=== PATIENT | female | born 2000 | race Caucasian/White ===

== ENCOUNTER 2024-06-22 10:40 | Emergency (ER) | payer OTHER, SELFPAY ==
--- NOTE | 2024-06-22 10:30 | RT.EKG_ITS ---
APPROVED REPORT Exam: Resting ECG Reason for Exam: chest pain Patient Location: E HR:77 bpm ECG Measurements Heart Rate 77 AXIS ND 134 P 67 QRSd 76 QRS 74 QT 342 T 52 QTc 387 Conclusion Sinus rhythm, rate 77 No interval abnormalities, No STEMI
[2024-06-22 10:51] VITALS: BP 122/88; PULSE 74; RESP 12; TEMP 36.3; O2SAT 99
--- NOTE | 2024-06-22 11:11 | ED.GENADUL_ITS ---
Discharge Plan Disposition Patient Disposition: Home Condition: Stable Discharge Details Clinical Impression: Chest pain of uncertain etiology Primary Care Provider: Unknown,Unknown ED Provider: Jean Paul Tate Home Meds and New Rx's Prescriptions: No Action methylphenidate HCl [Concerta] 36 mg tablet extended release 24hr 36 mg PO DAILY Discharge Instructions Instructions: Chest Pain, Adult ED Additional Instructions: You were seen in the emergency department for your chest pressure while walking your dog yesterday with some dizzy spells that resolved with rest, your cardiac workup is completely negative, we ruled out a blood clot in your lungs by the laboratory study called D-dimer, your EKG shows no acute abnormalities and your chest x-ray shows no acute abnormalities, there may be an element of anxiety involved and you are at low risk for any early cardiac pathology, therefore it is reasonable to follow-up with your regular primary care provider for possible need for an echocardiogram and possible stress test, please return to the emergency department for any return of significant exertional chest pain with shortness of breath sweating, dizziness, near fainting. Referrals: [facility] [Provider Group] Discharge Data Discharge Date/Time-TO BE ENTERED AT DEPARTURE: 06/22/24 14:32 HPI General Date/Time Provider Initiated Documentation: 06/22/24 10:54 . HPI Narrative: 24 year-old female presents to ED today by POV/ambulating with a chief complaint of chest tightness/discomfort and heaviness with onset last night while walking her dog, reoslving quickly with a few moments rest. Quality described as chest heaviness, no radiation to diaphoresis, dizziness, near syncope, nausea or vomiting, recent cough or fever, active chest pain. Severity is described as 3/10. Palliating factors include rest. Provoking factors include walking her dog, also questions whether getting to flu shots this year 5 months apart could be contributing. 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 Patient not anticoagulated. Related Data Home Medications ?Medication ?Instructions ?Recorded ?Confirmed methylphenidate HCl 36 mg 36 mg PO DAILY 06/22/24 06/22/24 tablet,extended release 24 hr (Concerta) Allergies Allergy/AdvReac Type Severity Reaction Status Date / Time No Known Allergies Allergy Unverified 06/22/24 10:53 General Stated Complaint: Chest Pain LETICIA: 3 Review of Systems All systems reviewed & are unremarkable except as noted in HPI and below Exam Narrative Exam Narrative: GENERAL APPEARANCE: Well-nourished, non-toxic, awake and alert, atraumatic, no acute distress. SKIN: Warm, pink, dry, intact, without rashes/lesions/ulcerations. HEAD: Normocephalic, atraumatic, normal hair distribution for gender/age. EYES: Normal conjunctiva, no exudates on lids/lashes. ENT: Nares patent, no circumoral cyanosis, no facial swelling NECK: Supple, trachea midline, painless cervical ROM. LUNGS/CHEST: Lungs CTA bilaterally- no rhonchi/rales/wheezes diffusely, non- labored respirations, normal A/P diameter, symmetrical expansion, no chest wall deformity HEART (CV/PV): Regular rate and rhythm without murmur, no peripheral edema, no JVD. ABDOMEN: Soft, non-distended, no guarding, no tenderness. MSK: Normal ROM, no swelling/deformity to bilateral UEs or LEs, moving all extremities without weakness, no cyanosis, spine midline without tenderness, normal curvature. NEURO: Mental Status AAOx4 - alert to person, place, time, events No facial droop, no forehead involvement. Motor: No focal weakness - strength 5/5 in bilateral UEs and LEs, proximal and distal, symmetric. Sensory: sensation intact to light touch globally. Gait normal: patient ambulated without ataxia into ED room. PSYCH: euthymic, cooperative, pleasant, appropriate speech Course Vital Signs Vital signs: Vital Signs Temperature 36.3 C L 06/22/24 10:51 Pulse 74 06/22/24 10:51 Respiratory Rate 12 06/22/24 10:51 Blood Pressure 122/88 06/22/24 10:51 Pulse Oximetry 99 06/22/24 10:51 Temperature 36.3 C L 06/22/24 10:51 Temperature Source Oral 06/22/24 10:51 Pulse 74 06/22/24 10:51 Respiratory Rate 12 06/22/24 10:51 Blood Pressure 122/88 06/22/24 10:51 Blood Pressure Position Sitting 06/22/24 10:51 Pulse Oximetry 99 06/22/24 10:51 Oxygen Delivery Method Room Air 06/22/24 10:51 Oxygen Flow Rate 0 06/22/24 10:51 Pain Level 5 06/22/24 10:51 Medical Decision Making This dictation utilizes [id number] dictation software and may contain unedited grammatical errors. 24 year-old female presents to ED today by POV/ambulating with a chief complaint of chest tightness/discomfort and heaviness with onset last night while walking her dog, reoslving quickly with a few moments rest. Quality described as chest heaviness, no radiation to diaphoresis, dizziness, near syncope, nausea or vomiting, recent cough or fever, active chest pain. Severity is described as 3/10. Palliating factors include rest. Provoking factors include walking her dog, also questions whether getting to flu shots this year 5 months apart could be contributing. 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 Patients' medical history: Negative, otherwise healthy. Family and social history: Denies family history of early cardiac disease. Pertinent exam findings / vital signs include benign physical exam. Differential / pathologies of concern include anxiety, PE, ACS. Diagnostic studies of: -CBC, CMP, magnesium, troponin, lipase, D-dimer, TSH, EKG, CXR. -CBC benign -CMP without abnormality -Mg++ wnl -Trop negative with reliable onset -Lipase WNL -D-dimer neg -EKG NSR -CXR negative Interventions of: -none, LOW Risk HEART Score- outpatient f/u. ED Course/Assessment/Plan: 24-year-old otherwise healthy female with no family history of early cardiac disease presents with exertional chest heaviness and shortness of breath while walking her dog yesterday that resolved with rest after a few moments. 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 Findings not consistent with ACS, PE, pneumonia, arrhythmia. Disposition of Chest Pain of Uncertain Etiology. Patient verbalized understanding of the plan and return to ED criteria and engaged in shared decision making. Medical Records Medical records reviewed: Yes I reviewed the patient's medical records. Imaging Data Radiologic Study: Attestation: I personally reviewed and interpreted this imaging study as follows: Imaging: X-Ray Radiologist's impression: EXAM: XR CHEST 2V PA LATERAL CLINICAL HISTORY: chest pain TECHNIQUE: 2D digital imaging was performed. Two views. COMPARISON: No exams were available for comparison FINDINGS: HEART: Normal size. Aorta: Not dilated. PULMONARY VASCULATURE: Normal. MEDIASTINUM: Unremarkable. LUNGS: Clear. PLEURAL SPACE: No pleural effusion or pneumothorax. BONE:Unremarkable for age. SOFT TISSUES: Unremarkable. IMPRESSION: No acute abnormality. Lab Data Lab results reviewed: Yes I reviewed the patient's lab results. Labs: Laboratory Tests Range/Units 06/22/24 12:20 WBC (4.4-10.8) 10^3/uL 6.73 RBC (3.93-5.22) 10^6/uL 5.05 Hgb (11.2-15.7) g/dL 14.3 Hct (36.0-46.0) % 42.2 MCV (80-95) fL 84 MCH (27.0-33.0) pg 28.3 MCHC (32.0-36.0) % 33.9 RDW (11.7-14.6) % 12.6 Plt Count (130-400) 10^3/uL 316 MPV (8.0-11.0) fL 10.7 Immature Gran % % 0.4 Neutrophils % % 45.2 Lymphocytes % % 37.0 Monocytes % % 7.4 Eosinophils % % 9.1 Basophils % % 0.9 Nucleated RBC % (0.0-0.3) % 0.0 Absolute Neutrophils (1.2-6.7) 10^3/uL 3.04 Absolute Lymphocytes (1.2-3.4) 10^3/uL 2.49 Absolute Monocytes (0.1-0.8) 10^3/uL 0.50 Absolute Eosinophils (0.0-0.7) 10^3/uL 0.61 Absolute Basophils (0.0-0.2) 10^3/uL 0.06 D-Dimer (<500) ng/mlFEU 162 Sodium (136-145) mmol/L 140 Potassium (3.5-5.1) mmol/L 3.7 Chloride (98-107) mmol/L 104 Carbon Dioxide (21.0-32.0) mmol/L 29.8 Anion Gap (3-11) mmol/L 6.2 BUN (7-18) mg/dL 10 Creatinine (0.55-1.02) mg/dL 0.8 Est GFR (CKD-EPI 2020) (mL/min/1.73m2) 105.45 Glucose (74-106) mg/dL 85 Calcium (8.5-10.1) mg/dL 9.1 Magnesium (1.8-2.4) mg/dL 2.2 Total Bilirubin (0.2-1.0) mg/dL 0.45 AST (15-37) U/L 18 ALT (14-59) U/L 24 Alkaline Phosphatase (46-116) U/L 90 Troponin I (<or=51) ng/L 13 Total Protein (6.4-8.2) g/dL 8.5 H Albumin (3.4-5.0) g/dL 4.3 Lipase (16-77) U/L 38 TSH (0.36-3.74) uIU/mL 1.69 Quality:SDOH Health Related Social Needs: No Data to Display PFSH All Active Problems (Updated 06/22/24 @ 14:18 by LISS Fitzpatrick) Chest pain of uncertain etiology (Acute) Social History Smoking risk assessment performed?: No
--- OUTSIDE RECORDS SUMMARY | 2024-06-22 12:10 | XMS_ITS | Continuity of Care Document ---
Author Organization [facility] Adult Address [address] [place] [address]- Care Team Providers Care Bottom Sander Name Role Phone Carson Caban MD Primary Care Physician [place] [facility] [place]/23 [facility] Adult [address] [place] [address]- Allergies, Adverse Reactions, Alerts No Known Allergies Medications albuterol 0.083% inhalation solution 2.5, mg, 3, mL, Inhalation, Every 4 hours, Scheduled / PRN, 0, 0, 09/30/07 3:26:44, as needed for wheezing, Print SHAMIR Number, 51 Start Date: 09/30/07 Status: Ordered Naprosyn 500 mg oral tablet 1 tablet = 500 mg, By Mouth, 2 times a day, For menstrual pain, # 60 tablet, 1 Refills, Maintenance, 01/26/18 15:54:44 EDT, Tablet Start Date: 01/26/18 Status: Ordered Social History Social History Type Response Smoking Status Never smoker; Tobacc o user in household: No entered on: 01/26/18 Sex Patient Care team information Care Team Personnel Name: Carson Caban MD Position: [facility] Physician - Pediatrics Member Role: PCP Address: Address: [address] [place] [address] [place] [address]- [place] Name: Ashley Donaldson RN Position: [facility] AMB Nurse Member Role: Primary Care Nurse Care Team Related Persons Name: ANSLEY FINK Address: home [address] [place], [place] Name: ANSLEY FINK Address: home [address] [place], [place] Name: SHIRA FARRELL Address: home [address] [place] [address] Name: SHIRA FARRELL Address: home [address] [place] [address]
--- OUTSIDE RECORDS SUMMARY | 2024-06-22 12:10 | XMS_ITS | Continuity of Care Document ---
Author Organization [facility] Address Unknown Care Team Providers Care Screening Unit Registered Nurse Name Role Phone Mee JOHNSON, Carson Villagomez Primary Care Physician [phone] Encounter [facility] [place] Date(s): 09/25/21 - 10/25/21 [facility] Attending Physician: Judd Clay Admitting Physician: Judd Clay Referring Physician: Judd Clay Allergies, Adverse Reactions, Alerts No Known Allergies [...]
--- OUTSIDE RECORDS SUMMARY | 2024-06-22 12:10 | XMS_ITS | Continuity of Care Document ---
Author Organization [facility] Adult Address [address] [place] [address]- Care Team Providers Care Platform Loader Name Role Phone Carson Caban MD Primary Care Physician Encounter [facility] [place] Date(s): 02/03/24 - 06/02/24 [facility] Adult [address] [place] [address]- Attending Physician: Eugene Cerrato MD Referring Physician: Luzmaria Conde Allergies, Adverse Reactions, Alerts No Known Allergies Immunizations Given and Recorded Vaccine Date Status Refusal Reason influenza virus vaccine, inactivated 12/23/23 Parker rded tetanus/diphtheria/pertussis, acel(Tdap) 11/20/21 Recorded Varicella Virus Vaccine 1 07/22/11 Recorded Varicella Virus Vaccine 2 01/26/01 Recorded Measles/Mumps/Rubella Virus Vaccine 04/01/05 Recor ded Measles/Mumps/Rubella Virus Vaccine 01/26/01 Recor ded Haemophilus B Conj Vaccine (oldterm) 05/14/01 Parker rded Haemophilus B Conj Vaccine (oldterm) 00 Parker rded Haemophilus B Conj Vaccine (oldterm) 00 Parker rded Haemophilus B Conj Vaccine (oldterm) 00 Parker rded Hepatitis B Vaccine (old term) 05/14/01 Recorded Hepatitis B Vaccine (old term) 00 Recorded Hepatitis B Vaccine (old term) 00 Recorded 1Result Comment: Unit: Unknown 2Result Comment: Unit: Unknown Medications Albuterol (Eqv-ProAir HFA) Inhalation, Every 4 hours, PRN Wheezing/Shortness of Breath, 0 Refills, Maintenance, 04/08/24 13:41:00 EDT, Partial fill upon patient request if the prescription is for a schedule II opioid drug. Start Date: 04/08/24 Status: Ordered albuterol 0.083% inhalation solution 2.5, mg, 3, mL, Inhalation, Every 4 hours, Scheduled / PRN, 0, 0, 09/30/07 3:26:44, as needed for wheezing, Print SHAMIR Number, 51 Start Date: 09/30/07 Status: Ordered ketotifen 0.025% ophthalmic solution 1 drops, Eyes, Both, Every 12 hours, 0 Refills, Maintenance, 04/08/24 13:43:00 EDT, Partial fill upon patient request if the prescription is for a schedule II opioid drug. Start Date: 04/08/24 Status: Ordered Naprosyn 500 mg oral tablet 1 tablet = 500 mg, By Mouth, 2 times a day, For menstrual pain, # 60 tablet, 1 Refills, Maintenance, 01/26/18 15:54:44 EDT, Tablet Start Date: 01/26/18 Status: Ordered Pulmicort Flexhaler 90 mcg 1 inhalation = 90 mcg, Inhalation, 2 times a day, 0 Refills, Maintenance, 04/08/24 13:43:00 EDT, Partial fill upon patient request if the prescription is for a schedule II opioid drug. Start Date: 04/08/24 Status: Ordered triamcinolone 0.1% topical cream Topically, 0 Refills, Maintenance, 04/08/24 13:44:00 EDT, Partial fill upon patient request if the prescription is for a schedule II opioid drug. Start Date: 04/08/24 Status: Ordered Problem List Condition Confirmation Course Effective Dates Status [facility] Anxiety disorder Confirmed Active Primary narcolepsy with cataplexy Confirmed Active Eczema Confirmed Active Asthma, mild intermittent Confirmed Active Seasonal allergic rhinitis Confirmed Active Social History Social History Type Response Smoking Status Never smoker; Tobacc o user in household: No entered on: 01/26/18 Sex Patient Care team information Care Team Personnel Name: Carson Caban MD Position: [facility] Physician - Pediatrics Member Role: PCP Address: Address: [address] [place] [address]- Name: Ashley Donaldson RN Position: [facility] AMB Nurse Member Role: Primary Care Nurse Care Team Related Persons Name: ANSLEY FINK Address: home [address] [place] [address] Name: ANSLEY FINK Address: home [address] [place] [address] Name: SHIRA FARRELL Address: [address] [place], [place] Name: SHIRA FARRELL Address: home [address] [place] [address]
--- OUTSIDE RECORDS SUMMARY | 2024-06-22 12:10 | XMS_ITS | Continuity of Care Document ---
Author Organization [facility] Adult Address [address] [place] [address]- Care Team Providers Care Insulation Blanket Maker Name Role Phone Carson Caban MD Primary Care Physician [phone] [place] [facility] [place] 06[place]02/24 [facility] Adult [facility] [place] [address]- Attending Physician: AdmJudd morejon Admitting Physician: AdmtrJudd Referring Physician: Admtr, Ar8 Allergies, Adverse Reactions, Alerts No Known Allergies [...] List Condition Confirmation Course Effective Dates Status [facility] at Informant Anxiety disorder Confirmed Active Primary narcolepsy [...] - Pediatrics Member Role: PCP Address: Address: [address] [place] [address] [place] [address]- Name: Ashley Donaldson RN Position: [facility] AMB Nurse Member Role: Primary Care Nurse Care Team Related Persons Name: ANSLEY FINK Address: home [address] [place] [address] Name: ANSLEY FINK Address: [address] [place] [address] Name: SHIRA FARRELL Address: [address] [place] [address] Name: SHIRA FARRELL Address: home [address] [place] [address]
--- OUTSIDE RECORDS SUMMARY | 2024-06-22 12:10 | XMS_ITS | Continuity of Care Document ---
Author Organization [facility] Address Unknown Care Team Providers Care Multiple Cut Off Saw Operator Name Role Phone Mee JOHNSON, Carson Villagomez Primary Care Physician Encounter [facility] [place] Date(s): 05/04/21 - 06/03/21 [facility] Allergies, Adverse Reactions, Alerts Substance Reaction Severity Status NKA Active Medications albuterol 0.083% inhalation solution 2.5, mg, [...]
--- OUTSIDE RECORDS SUMMARY | 2024-06-22 12:10 | XMS_ITS | Continuity of Care Document ---
Author Organization [facility] Address Unknown Care Team Providers Care Spring Tacker Name Role Phone Mee JOHNSON, Carson Villagomez Primary Care Physician Encounter [place] Date(s): 02/03/21 - 06/03/21 [facility] Attending Physician: Lizbeth Rubin MD Admitting Physician: Lizbeth Rubin MD Referring Physician: Carson Caban MD Allergies, Adverse Reactions, Alerts Substance Reaction Severity [...]
--- OUTSIDE RECORDS SUMMARY | 2024-06-22 12:10 | XMS_ITS | Continuity of Care Document ---
Author Organization [facility] Address [address] [place] [address]- Care Team Providers Care Presser Hand Name Role Phone Carson Caban MD Primary Care Physician [phone] Encounter [facility] Date(s): 09/07/19 - 09/07/[address] [address]- [facility] Attending Physician: Sandra Martinez DO Allergies, Adverse Reactions, Alerts Substance Reaction Severity [...]
--- OUTSIDE RECORDS SUMMARY | 2024-06-22 12:11 | XMS_ITS | Encounter Summary ---
Author Organization [facility] Address [phone] [facility] [place] [address] Care Team Providers Care Cloth Measurer Machine Name Role Phone Mayra Jensen MD Primary Care Provider [phone] Encounter Details Date Type Department Care Team (Late st Contact Info) Description 03/01/2024 9:05 AM EDT Ancillary Procedure [address] [address] Gloria Blake PA-C [address] [place] [address] [email or web address] Social History Tobacco Use Types Packs/Day Years Used Date Smoking Tobacco: Never Smokeless Tobacco: Never Alcohol Use Standard Drinks/Week Comments Never 0 (1 standard drink = 0.6 oz pur e alcohol) Education Answer Date Recorded Are you interested in more education? Not on paz e 06/20/2023 Are you concerned about learning? Not on file 06/20/2023 No 06/20/2023 No 06/20/2023 Digital Access Answer Date Recorded No 06/20/2023 No 06/20/2023 Reliable internet access at home? Not on file 06/20/2023 Device with a working camera? Not on file Sex and Gender Information Value Date Recorded Sex Assigned at Female 03/01/2024 8:17 AM EDT Gender Identity Female 03/01/2024 8:17 AM EDT Sexual Orientation Don't know 03/01/2024 8: 51 AM EDT documented as of this encounter Plan of Treatment Not on file documented as of this encounter Procedures Procedure Name Priority Date/Time Associated Diagnosis Comments US BEDSIDE Routine 03/01/2024 9:03 AM EDT documented in this encounter Results * US BEDSIDE (03/01/2024 9:03 AM EDT) Anatomical Region Laterality Modality Ultrasound Narrative 03/01/2024 9:03 AM EDT Gloria Blake PA-C ? 03/01/2024 10:50 AM Bedside Ultrasound Date/Time: 03/01/2024 9:03 AM Performed by: Gloria Blake PA-C Authorized by: Gloria Blake PA-C ?? Exam Type: Thoracic and Soft Tissue ?? Thoracic Exam Findings & Impression: Indications: patient with chest pain ?? Left Lung Consolidation: the L lung was visualized and there was no consolidation ?? Left Lung Sliding: the L chest was visualized and lung sliding was visualized ?? Overall Impression: negative ?? Soft Tissue Exam Findings & Impression: Indications: patient with pain and swelling ?? Body Area: ??Trunk Laterality: ??Left Trunk Location Details: ??Chest Edema: the soft tissue was visualized and no edema was present ?? Fluid Collection: the soft tissue was visualized and no fluid collection was identified ?? Overall Impressions: negative ?? Images: Images Saved: Yes ??Accession Number: [id number] Gloria Blake PA-C IMG POIN T OF CARE EXAMS documented in this encounter Visit Diagnoses Not on filedocumented in this encounter Care Teams Cloth Measurer Machine Relationship Specialty Start Date End Date Mayra Jensen MD [address] [place] [address], [address] [place] [address] PCP - General Internal Medicine 06/20/23 documented as of this encounter Additional Source Comments The information contained in this document represents components of the legal health record. It is not the complete legal health record.[facility]
--- OUTSIDE RECORDS SUMMARY | 2024-06-22 12:11 | XMS_ITS | Encounter Summary ---
Author Organization [facility] Address [phone] [place] [address] Care Team Providers Care Deodorizer Operator Name Role Phone Mayra Jensen MD Primary Care Provider [phone] Reason for Visit * Reason Comments Follow-up Encounter Details Date Type Department Care Team (Latest Contact Info) Description 07/15/2023 11:15 AM EDT Office Visit [facility] [address] [place] [address] Charlie Kaur MD [address] [place] [address], [facility] [address] [place] [address] [email or web address] Narcolepsy and cataplexy (Primary Dx) Social History Tobacco Use Types Packs/Day Years Used Date Smoking Tobacco: Never Tobacco Cessation:Counseling Given: Not Answered Alcohol Use Standard Drinks/Week Comments Never 0 [...] AM EDT documented as of this encounter Last Filed Vital Signs Vital Sign Reading Time Taken Comments Blood Pressure 106/62 07/15/2023 11:23 AM EDT Pulse 68 07/15/2023 11:23 AM EDT Temperature - - Respiratory Rate - - Oxygen Saturation 98% 07/15/2023 11:23 AM EDT Inhaled Oxygen Concentration - - Weight 70.9 kg (156 lb 3.2 oz) 07/15/2023 11:23 AM EDT Height - - Body Mass Index - - documented in this encounter Progress Notes * Charlie Kaur MD - 07/15/2023 11:15 AM EDT Tara Simon [id number] 07/15/2023 Chief Complaint Patient presents with ??? Follow-up Sleep Apnea: She presents for a sleep evaluation. 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 She settled in on methylphenidate. (Concerta 1`8 mg X 2) : generic didn't work well for her, more daytime fatigue and anxiety though she has settled in on this generic. She still hascataplexy. She has cataplexy whenever she is laughing or excited. She takes prn naps in the afternoon. She does OK driving even to [place]. She goes to sleep at falls asleep on couch 7, into bed 9:30 does Fall Asleep Easily Falls asleep in15 minutes. awakens 7 does not sleep through the night awakens 4 time a night ? Reason, she falls back to sleep Previous evaluation and treatment has included PSG and MSLT. Narcolepsy: Patient Reports sleep paralysis, hypnic/hypnopompic hallucinations and Cataplexy Restless Legs: No restless leg symptoms Medical Issues: Disrupting sleep: Pain No Heartburn No Sinus Problems No Nocturia 1 Sleep Hygeine: Caffeine does not cups none drink alcohol before bed does not OTC sleeping meds no Prescription sleeping meds: no Pulmicort neb no use. Albuterol MDI prn not daily No past medical history on file. No past surgical history on file. Current Outpatient Medications: ??? albuterol sulfate (PROAIR RESPICLICK) 90 mcg/actuation AePB, Inhale 1 each into the lungs 4 (four) times a day as needed., Disp: , Rfl: , Last Dispense: Unknown (patient-reported) ??? methylphenidate HCl (RITALIN) 10 MG tablet, Take 10 mg by mouth every 12 (twelve) hours., Disp:, Rfl: , Last Dispense: Unknown (patient-reported) Patient has no known allergies. Social History Social History Narrative ??? Not on file No family history on file. Review of Systems Respiratory: Positive for shortness of breath (she is out of shape). Neurological: Positive for headaches (bi temporal last month). All other systems reviewed and are negative. BP 106/62 Pulse 68 Wt 70.9 kg (156 lb 3.2 oz) SpO2 98% Physical Exam Constitutional: Appearance: Normal appearance. Eyes: Extraocular Movements: Extraocular movements intact. Pupils: Pupils are equal, round, and reactive to light. Cardiovascular: Rate and Rhythm: Normal rate and regular rhythm. Pulses: Normal pulses. Heart sounds: Normal heart sounds. Pulmonary: Effort: Pulmonary effort is normal. Breath sounds: Normal breath sounds. Abdominal: General: Abdomen is flat. Palpations: Abdomen is soft. Musculoskeletal: General: Normal range of motion. Cervical back: Normal range of motion and neck supple. Lymphadenopathy: Cervical: No cervical adenopathy. Skin: General: Skin is warm and dry. Neurological: General: No focal deficit present. Mental Status: She is alert and oriented to person, place, and time. ESS 16-18 ASSESSMENT: Narcolepsy and Cataplexy , currently managed with methylphenidate er 18 mg 2 qam but her ess is very high. PLAN: We discussed Wakix and the Xyrem/Lumryz meds: she will consider. She discern a significant difference in branded vs generic. documented in this encounter Plan of Treatment Not on file documented as of this encounter Visit Diagnoses Diagnosis Narcolepsy and cataplexy- Primary Narcolepsy with cataplexy documented in this encounter Care Teams Deodorizer Operator Relationship Specialty Start Date End Date Mayra Jensen MD [address] [place] [address], [address] [place] [address] PCP - General Internal Medicine 06/20/23 documented as of this encounter Additional Source Comments The information contained in this document represents components of the legal health record. It is not the complete legal health record.[facility]
--- OUTSIDE RECORDS SUMMARY | 2024-06-22 12:11 | XMS_ITS | Encounter Summary ---
Author Organization [facility] Address [phone] [facility] [employer] [place] [address] Care Team Providers Care Industrial Safety And Health Manager Name Role Phone Mayra Jensen MD Primary Care Provider [phone] Reason for Visit * Reason Comments Chest Pain Pt has a lump on l eft ribcage and she is feeling discomfort in the area and it is wrapping around her torso. Had an U/S in November and no lump was visualized at the time. Encounter Details Date Type Department Care Team (Late st Contact Info) Description 03/01/2024 8:33 AM EDT - 03/01/2024 11:29 AM EDT Emergency [facility] [address] [place] [address] Discharge Disposition: Home or Self Care Social History Tobacco Use Types Packs/Day Years [...] Sign Reading Time Taken Comments Blood Pressure 116/80 03/01/2024 11:24 AM EDT Pulse 66 03/01/2024 11:24 AM EDT Temperature 36.3 ??C (97.3 ??F) 03/01/2024 11:24 AM E DT Respiratory Rate 18 03/01/2024 11:24 AM EDT Oxygen Saturation 98% 03/01/2024 11:24 AM EDT Inhaled Oxygen Concentration - - Weight 68 kg (150 lb) 03/01/2024 8:40 AM EDT Height 157.5 cm (5' 2) 03/01/2024 8:40 AM EDT Body Mass Index 27.44 03/01/2024 8:40 AM EDT documented in this encounter Discharge Instructions * Discharge Instructions* Gloria Blake PA-C - 03/01/2024 10:39 AM EDT You have a reassuring exam and medical testing. No signs of any serious medical problems today. It is suspected that your pain and swelling due to inflammation of the cartilage space between yoursternum and your ribs. This is called costochondritis. You may read attached for more information. It is recommended to take anti-inflammatories. I recommend ibuprofen 600 mg every 6 hours with food. You may also try Boo wrap to the area, ice, and light stretching of the chest. Avoid vigorous or aggravating activities. Follow-up with your primary care doctor if pain and swelling persists. Return to the emergency department if you have significant worsening of your symptoms including severe pain, difficulty breathing, fever, cough or other concerning symptoms. It was a pleasure caring for you today, hope you feel better * Attachments The following attachments cannot be sent through Care Everywhere. * Costochondritis (Filipino) documented in this encounter Medications at Time of Discharge Medication Sig Dispensed Refills Start Date End Date albuterol sulfate (PROAIR RESPICLICK) 90 mcg/actuation AePB Inhale 1 each into the lungs 4 (four) times a day as needed. CONCERTA 18 mg ER tablet Take 2 tablets (36 mg total) by mouth every morning. 60 tablet 09/03/2023 documented as of this encounter Procedure Notes * Gloria Blake PA-C - 03/01/2024 9:03 AM EDTAssociated Order(s): Bedside Ultrasound Procedure Bedside Ultrasound Date/Time: 03/01/2024 9:03 AM Performed by: Gloria Blake PA-C Authorized by: Gloria Blake PA-C Exam Type: Thoracic and Soft Tissue Thoracic Exam Findings & Impression: Indications: patient with chest pain Left Lung Consolidation: the L lung was visualized and there was no consolidation Left Lung Sliding: the L chest was visualized and lung sliding was visualized Overall Impression: negative Soft Tissue Exam Findings & Impression: Indications: patient with pain and swelling Body Area: Trunk Laterality: Left Trunk Location Details: Chest Edema: the soft tissue was visualized and no edema was present Fluid Collection: the soft tissue was visualized and no fluid collection was identified Overall Impressions: negative Images: Images Saved: Yes Accession Number: [id number] Associated attestation - Xavier Emerson MD - 03/02/2024 12:58 AM EDT I, Xavier Emerson MD, the Attending Physician was available and supervising the care of this patient. documented in this encounter ED Notes * Micky Avitia RN - 03/01/2024 11:25 AM EDT ED Discharge Nursing Note Pt is alert, calm, and sitting at bedside able to speak in full sentences. Pt to follow up with PCPin 1-2 days. Pt ambulated out of ED with even steady gait. * Micky Avitia RN - 03/01/2024 9:35 AM EDT ED Nursing Progress Note Pt is alert, calm, and resting comfortably in bed in on computer. Pt in NAD and with no acute concerns, rr unlabored and equal chest rise bilateral. * Micky Avitia RN - 03/01/2024 8:52 AM EDT ED Nursing Progress Note Pt is alert, calm, resting comfortably in bed in NAD and with no acute concerns. RR unlabored and equal chest rise bilateral. * Zee Smith RN - 03/01/2024 8:16 AM EDT Pt has a lump on left ribcage and she is feeling discomfort in the area and it is wrapping aroundher torso. Had an U/S in November and no lump was visualized at the time. * Gloria Blake PA-C - 03/01/2024 7:53 AM EDT Chief Complaint Chief Complaint Patient presents with Chest Pain Pt has a lump on left ribcage and she is feeling discomfort in the area and it is wrapping aroundher torso. Had an U/S in November and no lump was visualized at the time. History of Present Illness The patient, Tara Simon,is a 24 y.o. female who presents for evaluation of Chest Pain (Pt has a lump on left ribcage and she is feeling discomfort in the area and it is wrapping around her torso.Had an U/S in November and no lump was visualized at the time.) The patient with medical history of mild intermittent asthma and narcolepsy presents to the emergency department for swelling to left anterior rib cage with discomfort. Reports she first noticed region of swelling to her left lower anterior rib cage about 6 or 7 months ago. She had the area evaluated by ultrasound was ordered by her PCP in November which did not show any abnormalities. She states her PCP told her not to worry about the swelling. For the past 6 weeks or so, she has had some discomfort in the area which does seem to radiate around her rib cage towards her back. She also notices some intermittent cracking and soreness in her sternum for which she stretches with some relief in this discomfort. Rates the pain as mild, at worst 3/10. Nonpleuritic, nonexertional. No recent sickness, fever, cough. Denies any shortness of breath, leg swelling, recent travel. No trauma associated with symptoms. Unless otherwise specified, I have reviewed and agree with the triage and nursing notes. ROS A ten point review of systems was negative except what was noted in the HPI. Review of Systems Past Medical History Past Medical History: Diagnosis Date Mild intermittent asthma, uncomplicated Past Surgical History No past surgical history on file. Home Medications Prior to Admission medications Medication Sig albuterol sulfate (PROAIR RESPICLICK) 90 mcg/actuation AePB 1 each, Inhalation, 4 times daily PRN CONCERTA 18 mg ER tablet 36 mg, Oral, Every morning Allergies No Known Allergies Social and Family History Social History Tobacco Use Smoking status: Never Smokeless tobacco: Never Substance Use Topics Alcohol use: Never Social History Substance and Sexual Activity Drug Use Not on file No family history on file. Physical Exam Vital Signs: ED Triage Vitals Enc Vitals Group BP 03/01/24 0816 115/77 Heart Rate 03/01/24 0816 64 Respiratory Rate 03/01/24 0816 18 Temperature 03/01/24 0816 36.3 ??C (97.3 ??F) Temp Source 03/01/24 0816 Tympanic SpO2 03/01/24 0816 98 % Weight 03/01/24 0840 150 lb Height 03/01/24 0840 5' 2 Head Circumference -- Peak Flow -- Pain Score -- Pain Loc -- Pain Edu? -- Excl. in GC? -- Physical Exam Vitals and nursing note reviewed. Constitutional: General: She is not in acute distress. Appearance: She is not ill-appearing or diaphoretic. HENT: Head: Atraumatic. Eyes: Conjunctiva/sclera: Conjunctivae normal. Cardiovascular: Rate and Rhythm: Normal rate and regular rhythm. Pulses: Radial pulses are 2+ on the right side and 2+ on the left side. Posterior tibial pulses are 2+ on the right side and 2+ on the left side. Heart sounds: Normal heart sounds. Pulmonary: Effort: Pulmonary effort is normal. Breath sounds: Normal breath sounds. Comments: Trace soft tissue swelling without definitive lump or mass. No abscess. No overlying skinchange. Nontender to palpation. Symmetric chest rise and fall. Lung sounds clear and equal bilaterally. Abdominal: General: Bowel sounds are normal. There is no distension. Palpations: Abdomen is soft. There is no mass. Tenderness: There is no abdominal tenderness. There is no guarding or rebound. Musculoskeletal: General: Normal range of motion. Cervical back: Neck supple. Comments: No lower extremity edema or calf tenderness. Skin: General: Skin is warm and dry. Neurological: General: No focal deficit present. Mental Status: She is alert and oriented to person, place, and time. Psychiatric: Mood and Affect: Mood normal. Behavior: Behavior normal. Laboratory Testing No results found for this visit on 03/01/24. Radiology Testing XR Ribs (Left) Final Result No displaced rib fracture. Bedside Ultrasound MDM Assessment and Plan: Patient presents for 6 to 7 months of what appears to be minor soft tissue swelling to the left anterior lower chest wall, now with some intermittent pain for the past 6 weeks. Normal vital signs. Reassuring exam as noted above. Chest x-ray negative. Bedside ultrasound without any notable mass or other concerning findings. Presentation not consistent with ACS, PE (PERC negative) or other acute cardiopulmonary pathology. No findings on x-ray consistent with malignancy. Discussed possibly musculoskeletal etiology such as costochondritis with resultant overlying swelling as etiology of pain. Discussed conservative management and PCP follow-up. Discussed return to ED precautions. Patient agreeable this plan and discharged in stable condition. Dr. Emerson was available for consultation duringthis encounter. Category 2 and 3: Independent Interpretation of Tests, Consideration of Tests, or External Discussion of Results: Radiology: Radiology studies were independently interpreted. Bedside Ultrasound: Bedside ultrasound was performed. Clinical Impressions as of 03/01/24 1050 Costochondritis Critical Care Time: 0 minutes Clinical Impression Diagnosis Description Comment Final diagnosis Costochondritis Costochondritis -- Disposition: Home Gloria Blake PA-C 03/01/24 1101 documented in this encounter Plan of Treatment Not on file documented as of this encounter Procedures Procedure Name Priority Date/Time Associated Diagnosis Comments XR RIBS 3 OR MORE VIEWS WITH PA CHEST (LEFT) Routine 03/01/2024 9:52 AM EDT US BEDSIDE Routine 03/01/2024 9:03 AM EDT documented in this encounter Results * XR RIBS 3 OR MORE VIEWS WITH PA CHEST (LEFT) (03/01/2024 9:52 AM EDT) Anatomical Region Laterality Modality Chest Computed Radiogr aphy 03/01/2024 10:2 4 AM EDT Impressions 03/01/2024 10:25 AM EDT No displaced rib fracture. Narrative 03/01/2024 10:25 AM EDT XR RIBS 3 OR MORE VIEWS WITH PA CHEST (LEFT) Referring clinician's provided indication for this examination in [facility]: Pain COMPARISON: None available. FINDINGS: No displaced rib fracture. PA evaluation of the chest demonstrates no focal consolidation, pleural effusion, pulmonary edema, or pneumothorax. Cardiomediastinal silhouette is normal. Procedure Note Winston Meredith MBBS - 03/01/2024 XR RIBS 3 OR MORE VIEWS WITH PA CHEST (LEFT) Referring clinician's provided indication for this examination in [facility]:Pain COMPARISON: None available. FINDINGS: No displaced rib fracture. PA evaluation of the chest demonstrates no focal consolidation, pleuraleffusion, pulmonary edema, or pneumothorax. Cardiomediastinal silhouetteis normal. IMPRESSION: No displaced rib fracture. Gloria SHIPLEYC IMG XR C HEST * US BEDSIDE (03/01/2024 9:03 AM EDT) [...] ?? Images: Images Saved: Yes ??Accession Number: [id number] Gloria Blake PA-C IMG POIN T OF CARE EXAMS documented in this encounter Visit Diagnoses Diagnosis Costochondritis- Primary Tietze's disease documented in this encounter Care Teams Industrial Safety And Health Manager Relationship Specialty Start Date End Date Mayra Jensen MD [address] [place] [address] PCP - General Internal Medicine 06/20/23 documented as of this encounter Additional Source Comments The information contained in this document represents components of the legal health record. It is not the complete legal health record.[facility]
--- OUTSIDE RECORDS SUMMARY | 2024-06-22 12:11 | XMS_ITS | Encounter Summary ---
Author Organization [facility] Address [phone] [place] [address] Care Team Providers Care Operations Manager Assistant Name Role Phone Mayra Jensen MD Primary Care Provider Encounter Details Date Type Department Care Team (Late st Contact Info) Description 07/16/2023 Orders Only [facility] [address] [place] [address] [address] [place] [address] Charlie Kaur MD [address] [facility], [address] [place] [address] [email or web address] Social History Tobacco Use Types Packs/Day Years Used Date Smoking Tobacco: Never Alcohol Use Standard Drinks/Week Comments [...] documented as of this encounter Visit Diagnoses Not on filedocumented in this encounter Care Teams Operations Manager Assistant Relationship Specialty Start Date End Date Mayra Jensen MD [address] [place] [address], [address] [place] [address] PCP - General Internal Medicine 06/20/23 documented as of this encounter Additional Source Comments The information contained in this document represents components of the legal health record. It is not the complete legal health record.[facility]
--- OUTSIDE RECORDS SUMMARY | 2024-06-22 12:11 | XMS_ITS | Encounter Summary ---
Author Organization [facility] Address [phone] [place] [address] Care Team Providers Care Security Rover Name Role Phone Mayra Jensen MD Primary Care Provider [phone] Encounter Details Date Type Department Care Team (Latest Contact Info) Description 09/03/2023 1:45 PM EST Office Visit [facility] [address] [place] [phone] Charlie Kaur MD [address] [place] [address], [address] [place] [address] [email or web address] Narcolepsy and cataplexy (Primary Dx) Social [...] Sign Reading Time Taken Comments Blood Pressure 118/76 09/03/2023 1:41 PM EST Pulse 68 09/03/2023 1:41 PM EST Temperature - - Respiratory Rate - - Oxygen Saturation 100% 09/03/2023 1:41 PM EST Inhaled Oxygen Concentration - - Weight 71.2 kg (157 lb) 09/03/2023 1:41 PM EST Height 157.5 cm (5' 2) 09/03/2023 1:41 PM EST Body Mass Index 28.72 09/03/2023 1:41 PM EST documented in this encounter Progress Notes * Charlie Kaur MD - 09/03/2023 1:45 PM EST Tara Simon [id number] 09/03/2023 Presentation: She is using generic methylphenidate 2 18 mg tabs as is doing fine She is staying awake during the day, staying awake at work, driving fine She is sleeping well She has cataplexy all of the time: when she's laughing she gets notable muscle weakness. Her cataplexy is a bit better on the methylphenidate. Current Outpatient Medications: albuterol sulfate (PROAIR RESPICLICK) 90 mcg/actuation AePB, Inhale 1 each into the lungs 4 (four) times a day as needed., Disp: , Rfl: , Last Dispense: Unknown (patient-reported) CONCERTA 18 mg ER tablet, Take 2 tablets (36 mg total) by mouth every morning., Disp: 60 tablet, Rfl: 0, Last Dispense: Unknown (outside pharmacy) Patient has no known allergies. BP 118/76 Pulse 68 Ht 157.5 cm (5' 2) Wt 71.2 kg (157 lb) SpO2 100% BMI 28.72 kg/m?? Physical Exam Cardiovascular: Rate and Rhythm: Normal rate and regular rhythm. Pulses: Normal pulses. Heart sounds: Normal heart sounds. Pulmonary: Effort: Pulmonary effort is normal. Breath sounds: Normal breath sounds. ASSESSMENT: Narcolepsy and cataplexy PLAN: we again discussed alternate meds, but she wants to continue the methylphenidate documented in this encounter Plan of Treatment Not on file documented as of this encounter Visit Diagnoses Diagnosis Narcolepsy and cataplexy- Primary Narcolepsy with cataplexy documented in this encounter Care Teams Security Rover Relationship Specialty Start Date End Date Mayra Jensen MD [address] [place] [address], [address] [place] [address] PCP - General Internal Medicine 06/20/23 documented as of this encounter Additional Source Comments The information contained in this document represents components of the legal health record. It is not the complete legal health record.[facility]
--- OUTSIDE RECORDS SUMMARY | 2024-06-22 12:11 | XMS_ITS | Encounter Summary ---
Author Organization [facility] Address [phone] [place] [address] Care Team Providers Care Crate Liner Name Role Phone Mayra Jensen MD Primary Care Provider [phone] Encounter Details Date Type Department Care Team (Late st Contact Info) Description 08/21/2023 Telephone [facility] [address] [place] [phone] Charlie Kaur MD [address] [place] [address], [address] [place] [address] [email or web address] Social History Tobacco Use Types Packs/Day Years [...] AM EDT documented as of this encounter Progress Notes * Shirley Bales - 09/04/2023 12:34 PM EST Discussed with Dr. Kaur as insurance denied coverage and he states he spoke with patient yesterday during the visit and patient is aware insurance will not cover. Will stop attempting PA efforts at this time. * Susan Montana - 09/02/2023 2:05 PM EST Pt is wondering about the status of the concerta, she said she just got off the phone with her insurance and nothing has changed on their end. Pt would like a call back * Susan Montana - 08/22/2023 1:19 PM EST PT informed * Shirley Bales - 08/21/2023 4:[address] Kaur provided me with additional information yesterday afternoon. I will resubmit PA to insurance company by tomorrow. * Susan Montana - 08/21/2023 10:48 AM EST Pt is hoping to get a call back on the status of this form she had filled out that we submitted forthe rubén so she knows where its at in with processing. documented in this encounter Plan of Treatment Not on file documented as of this encounter Visit Diagnoses Not on filedocumented in this encounter Care Teams Crate Liner Relationship Specialty Start Date End Date Mayra Jensen MD [address] [place] [address], [facility] [address] [place] [address] PCP - General Internal Medicine 06/20/23 documented as of this encounter Additional Source Comments The information contained in this document represents components of the legal health record. It is not the complete legal health record.[facility]
--- OUTSIDE RECORDS SUMMARY | 2024-06-22 12:11 | XMS_ITS | Encounter Summary ---
Author Organization [facility] Address [phone] [place] [id number] Care Team Providers Care Machine Builder Name Role Phone Mayra Jensen MD Primary Care Provider [phone] Encounter Details Date Type Department Care Team (Late st Contact Info) Description 07/16/2023 Telephone [facility] [address] [place] [phone] Charlie Kaur MD [address] [place] [address], [address] [place] [address] [email or web address] Social History Tobacco Use Types Packs/Day Years [...] encounter Progress Notes * Shirley Bales - 07/29/2023 4:24 PM EST PA completed and waiting for MD signature to fax to [facility]. Patient aware as I had to call her for dates of failed medications. * Susan Montana - 07/28/2023 1:43 PM EST Pt called again saying that she spoke with her insurance, she wants it sent to [facility] directly, she did not provide a fax. If you have any questions the patient did speak to them directly * Barbara Riggins - 07/28/2023 12:28 PM EST PA started Pending results from insurance company - * Susan Montana - 07/28/2023 10:41 AM EST Pt called today and LVM hoping to get a c/b about the status of this medication * Susan Montana - 07/16/2023 1:51 PM EDT Pt did go home and think it over and she would like to go with the converta for 2 18mg a day for a total of 60mg a day -- it does have to be the brand name so it will need a PA--- this will be going to the [facility] [address] [facility] [place] (it has to be this one because they carry it) documented in this encounter Plan of Treatment Not on file documented as of this encounter Visit Diagnoses Not on filedocumented in this encounter Care Teams Machine Builder Relationship Specialty Start Date End Date Mayra Jensen MD [address] [place] [address], [address] [place] [address] (work) PCP - General Internal Medicine 06/20/23 documented as of this encounter Additional Source Comments The information contained in this document represents components of the legal health record. It is not the complete legal health record.[facility]
--- OUTSIDE RECORDS SUMMARY | 2024-06-22 12:11 | XMS_ITS | Encounter Summary ---
Author Organization [facility] Address [phone] [place] [address] Care Team Providers Care Epic [facility] Name Role Phone Mayra Jensen MD Primary Care Provider [phone] Reason for Visit * Reason Onset Date Comments Medication Prior Authorization 08/05/2023 Encounter Details Date Type Department Care Team (Late st Contact Info) Description 08/05/2023 Telephone [facility] [address] [place] [phone] Charlie Kaur MD [address] [place] [phone] [email or web address] Medication Prior Authorization Social History Tobacco Use Types Packs/Day Years [...] as of this encounter Progress Notes * Vicenta Alcocer - 08/13/2023 1:23 PM EST Patient called in to check on the status of a peer to peer for the Concerta. * Susan Montana - 08/05/2023 10:30 AM EST Pt called and is wondering about the status of the peer to peer for her medication and she also wants to make sure that we know if we need anything from her to not hesitate to call to help move this along. Zulma, her diagnosis is narcolepsy and cataplexy, and the need for branded Concerta is ineffective generic methylphenidate. documented in this encounter Plan of Treatment Not on file documented as of this encounter Visit Diagnoses Not on filedocumented in this encounter Care Teams Epic [facility] Relationship Specialty Start Date End Date Mayra Jensen MD [address] [place] [address], [address] [id number] PCP - General Internal Medicine 06/20/23 documented as of this encounter Additional Source Comments The information contained in this document represents components of the legal health record. It is not the complete legal health record.[facility]
[2024-06-22 12:28] LABS: Abs Immature Grans 0.03 10^3/uL (0.0-0.06); Absolute Basophil Count 0.06 10^3/uL (0.0-0.2); Absolute Eosinophil Count 0.61 10^3/uL (0.0-0.7); Absolute Lymphocyte Count 2.49 10^3/uL (1.2-3.4); Absolute Neutrophil Count 3.04 10^3/uL (1.2-6.7); Basophils % 0.9 %; Eosinophils % 9.1 %; HCT 42.2 % (36.0-46.0); HGB 14.3 g/dL (11.2-15.7); Immature Grans % 0.4 %; MCH 28.3 pg (27.0-33.0); MCHC 33.9 % (32.0-36.0); MCV 84 fL (80-95); MPV 10.7 fL (8.0-11.0); Monocytes % 7.4 %; Neutrophils % 45.2 %; Platelet Count 316 10^3/uL (130-400); RBC 5.05 10^6/uL (3.93-5.22); RDW 12.6 % (11.7-14.6); RDW-SD 38.2 fL; WBC 6.73 10^3/uL (4.4-10.8)
[2024-06-22 12:57] LABS: ALT 24 U/L (14-59); AST 18 U/L (15-37); Albumin 4.3 g/dL (3.4-5.0); Alkaline Phosphatase 90 U/L (46-116); Anion Gap 6.2 mmol/L (3-11); BUN 10 mg/dL (7-18); Bilirubin, Total 0.45 mg/dL (0.2-1.0); CO2 29.8 mmol/L (21.0-32.0); CREATININE 0.8 mg/dL (0.55-1.02); Calcium 9.1 mg/dL (8.5-10.1); Chloride 104 mmol/L (98-107); Estimated GFR 105.45 (mL/min/1.73m2); Glucose 85 mg/dL (74-106); Lipase 38 U/L (16-77); Magnesium 2.2 mg/dL (1.8-2.4); Potassium 3.7 mmol/L (3.5-5.1); Sodium 140 mmol/L (136-145); TSH (W/Ref FT4) 1.69 uIU/mL (0.36-3.74); Total Protein 8.5 g/dL (6.4-8.2); Troponin I 13 ng/L (<or=51)
[2024-06-22 13:11] LABS: D-Dimer 162 ng/mlFEU (<500)
--- NOTE | 2024-06-22 14:02 | DI.RAD_ITS ---
Exam(s) XR CHEST 2V PA LATERAL EXAM: XR CHEST 2V PA LATERAL CLINICAL HISTORY: chest pain TECHNIQUE: 2D digital imaging was performed. Two views. COMPARISON: No exams were available for comparison FINDINGS: HEART: Normal size. Aorta: Not dilated. PULMONARY VASCULATURE: Normal. MEDIASTINUM: Unremarkable. LUNGS: Clear. PLEURAL SPACE: No pleural effusion or pneumothorax. BONE:Unremarkable for age. SOFT TISSUES: Unremarkable. IMPRESSION: No acute abnormality. DATA REPOSITORY: RADIATION DOSE DELIVERED:
[2024-06-22 14:30] VITALS: BP 122/88; PULSE 74; RESP 12; RESP 20; TEMP 36.3; O2SAT 99
[2024-06-23 10:59] LABS: Lyme Ab w Rflx to Lyme Confirm Negative (Negative)
[2024-06-25 14:10] LABS: Anaplasma phagocytophilum Negative (Negative); B. miyamotoi PCR Negative (Negative); Babesia divergens/MO-1 Negative (Negative); Babesia duncani Negative (Negative); Babesia microti Negative (Negative); Ehrlichia chaffeensis Negative (Negative); Ehrlichia ewingii/canis Negative (Negative); Ehrlichia muris eauclairensis Negative (Negative)
== END 2024-06-22 14:32 | disposition home or self-care (01) ==
PROVIDERS: Emergency Provider Physician Assistant
DX: R07.89 Other chest pain (principal); R06.02 Shortness of breath; R42 Dizziness and giddiness
CPT/HCPCS: 80053; 83690; 87798; 93005; 99285; 71046; 83735; 84443; 84484; 85025; 85379; 86618; 93010; 99284